=== PATIENT | female | born 1960 | race Caucasian/White ===

== ENCOUNTER 2016-08-14 09:29 | Outpatient (CLI) | payer MEDICARE ==
[2016-08-14 13:09] LABS: ALT (SGPT) 52 U/L (8-55); AST (SGOT) 51 U/L (5-34); Albumin 4.2 g/dL (3.5-5.0); Alkaline Phosphatase 86 U/L (40-150); Bilirubin, Direct 0.2 mg/dL (0.1-0.3); Bilirubin, Total 0.5 mg/dL (0.2-1.2); Cardiac Risk 3.8 (Less than 4.5); Cholesterol 219 mg/dl (< 200 Desired); HDL Cholesterol 58 mg/dL (>60 Neg Risk); LDL Cholesterol, Calculated 136 mg/dL; Protein, Total 7.8 g/dL (6.0-8.3); Triglycerides 126 mg/dL (Less than 150)
[2016-08-14 13:28] LABS: Bilirubin Negative (Negative); Blood, Urine Negative (Negative); Clarity Clear (Clear); Glucose, Urine (Dipstick) Negative (Negative); Leukocyte Negative (Negative); Nitrite Negative (Negative); Protein, Urine (Dipstick) Negative (Neg-Trace); Specific Gravity, Urine 1.015 (1.005-1.030); Urobilinogen 0.2 mg/dL (0.2-1.0); pH, Urine 7.5 (5.0-9.0)
[2016-08-14 13:39] LABS: Bacteria/HPF None Seen HPF (None Seen); RBC/HPF None Seen HPF (0-3); Squamous Epithelial 0-3 HPF (0-3); WBC/HPF None Seen HPF (0-3)
[2016-08-14 18:17] LABS: HBCM Index 0.11 S/CO (0-0.79); HBSAg Index 0.19 S/CO (0-0.99); Hep A IgM AB Non-Reactive (NonReactive); Hep A IgM S/CO 0.13 S/CO (0-0.79); Hep B Surf Ag Non-Reactive S/CO (NonReactive); Hepatitis B Core IGM Abs Non-Reactive (NonReactive)
[2016-08-14 19:06] LABS: Hep C IgG Ab Reflex HepC Qnt (NonReactive); Hep C Index 11.67 S/CO (0-0.79)
== END 2016-08-14 09:30 | disposition home or self-care (01) ==
LOC: NAVSJIPCSP 09:29
PROVIDERS: ATTEND Internal Medicine
DX: E78.5 Hyperlipidemia, unspecified (principal); R74.0 Nonspecific elevation of levels of transaminase and lactic acid dehydrogenase [LDH]; R31.9 Hematuria, unspecified; Z79.899 Other long term (current) drug therapy
CPT/HCPCS: 36415; 80061; 80074; 80076; 81001; 87522

== ENCOUNTER 2018-08-18 12:06 | Outpatient (CLI) | payer MEDICARE ==
--- NOTE | 2018-08-18 12:25 | CT ---
EXAM: Brain CTWithout contrast: HISTORY: Left-sided weakness for 2 days COMPARISON: None FINDINGS: Minimal subtle poorly defined low-attenuation change in the upper right basal ganglia and extending u p into the centrum semiovale region, nonspecific possibly chronic white matter ischemic change versus changes of a subacute infarct. No focal mass or midline shift. No intra or extra-axial hemorrhage. Sinuses and mastoids are clear of acute process. IMPRESSION: Subtle patchy low-attenuation change in the upper right basal ganglia and extending into the centrum semiovale region, nonspecific, possibly chronic white matter ischemic changes versus subacute infarct changes. Follow-up MRI exam is recommended for further assessment in this regard. No mass or acute hemorrhage.
== END 2018-08-18 12:07 | disposition home or self-care (01) ==
LOC: NAV CT 12:06
PROVIDERS: ATTEND Internal Medicine
DX: R53.1 Weakness (principal)
CPT/HCPCS: 70450